=== PATIENT | female | born 1970 | race Caucasian/White ===

== ENCOUNTER 2024-05-19 12:11 | Inpatient (IN) | payer OTHER ==
[~2024-05-19] VITALS: Ht 152.4 cm; Wt 51.4 kg
[2024-05-19 13:05] LABS: BASOPHILS ABSOLUTE AUTO 0.03 K/mm3 (0.00-0.23); BASOPHILS PERCENT AUTO 0 % (0-2); EOSINOPHILS ABSOLUTE AUTO 0.03 K/mm3 (0.00-0.68); EOSINOPHILS PERCENT AUTO 0 % (0-6); Hematocrit 40.5 % (33.0-51.0); Hemoglobin 14.1 g/dL (11.5-16.0); IMMATURE GRAN ABSOLUTE AUTO 0.02 K/mm3 (0.00-0.10); IMMATURE GRAN PERCENT AUTO 0 % (0-1); LYMPHOCYTES ABSOLUTE AUTO 1.23 K/mm3 (0.84-5.20); LYMPHOCYTES PERCENT AUTO 15 % (21-46); MONOCYTES ABSOLUTE AUTO 0.48 K/mm3 (0.16-1.47); MONOCYTES PERCENT AUTO 6 % (4-13); Mean Corpuscular HGB 32.7 pg (26.0-34.0); Mean Corpuscular HGB Conc 34.8 g/dL (31.5-36.5); Mean Corpuscular Volume 94 fL (80-100); Mean Platelet Volume 10.1 fL (9.1-12.4); NEUTROPHILS ABSOLUTE AUTO 6.21 K/mm3 (1.96-9.15); NEUTROPHILS PERCENT AUTO 78 % (41-73); Platelet Count 270 K/mm3 (150-400); RDW Standard Deviation 42.5 fL (35.1-46.3); Red Blood Cell Count 4.31 M/mm3 (3.80-5.20)
[2024-05-19 13:08] LABS: CORONAVIRUS COVID-19 AG Negative (NEGATIVE); INFLUENZA A AG Negative (NEGATIVE); INFLUENZA B AG Negative (NEGATIVE)
[2024-05-19 13:19] LABS: International Normalized Ratio 1.02; Prothrombin Time Results 10.9 Sec (9.7-11.5)
[2024-05-19 13:24] LABS: Albumin, Blood 4.2 g/dL (3.4-5.0); Albumin/Globulin Ratio 1.2 (0.8-1.8); Bilirubin, Total 0.3 mg/dL (0.1-1.0); Calcium, Blood 9.4 mg/dL (8.5-10.1); Creatinine, Blood 0.61 mg/dL (0.40-1.00); Globulin, Blood 3.4 g/dL (2.2-4.0); Potassium, Blood 3.7 mmol/L (3.5-5.5); Total Protein, Blood 7.6 g/dL (6.4-8.2)
[2024-05-19] MEDS ORDERED: Aspirin 81 MG Chew PO ONE (16:50)
[2024-05-19] MEDS ORDERED: Ondansetron HCl 2 MG / ML 2ML Vial IV PRN (17:45)
[2024-05-19] MEDS ORDERED: NS 1,000 ML IV SCH (18:00)
[2024-05-19] MEDS ORDERED: Losartan Potassium 50 MG Tab PO ONE (18:05)
[2024-05-19 20:13] VITALS: BP 181/95
[2024-05-20 00:27] VITALS: BP 145/69
[2024-05-20 04:21] VITALS: BP 136/78
--- NOTE | 2024-05-20 04:56 | NUR ---
SHIFT SUMMARY: PT ARRIVED ~1930 AOX4 WITH R SIDED WEAKNESS AND DEFICITS. NO FACIAL DROOP AND ABLE TO SPEAK SOFTLY. IS ABLE TO ANSWER QUESTIONS APPROPRIATELY BUT R ARM AND LEG VERY WEAK. ABLE TO TRANSFER WITH WALKER AND ASSISTANCE FROM GURNEY TO BED AND TO BATHROOM. SLIGHT R FOOT DROP BUT PT COMPENSATING AND FAIRLY STEADY ON THEIR FEET. PT DENIES PAIN OR DISCOMFORT BUT EMOTIONAL ABOUT CURRENT CONDITION AND ANXIOUS ABOUT BEING ABLE TO RETURN TO BASELINE. PT FLAT AND WITHDRAWN BUT COOPERATIVE IN CARE. NO ACUTE EVENTS OVERNIGHT. PT RESTING IN BED, BED IN LOWEST POSITION, CALL LIGHT IN REACH. CONTINUING CARE.
[2024-05-20 06:13] LABS: Cholesterol 272 mg/dL (50-200); HDL Cholesterol 90 mg/dL (>39); LDL/HDL RATIO 1.8; Low Density Lipoprotein Chol 163 mg/dL (0-110); Triglycerides 94 mg/dL (30-160); Very Low Density Lipoprot Chol 18 mg/dL (6-32)
[2024-05-20] MEDS ORDERED: Atorvastatin 40 MG Tab PO SCH (09:00)
[2024-05-20] MEDS ORDERED: Enoxaparin 40 MG/0.4 ML SYR SC SCH (09:00)
[2024-05-20] MEDS ORDERED: Aspirin 81 MG Chew PO SCH (09:00)
[2024-05-20] MEDS ORDERED: Losartan Potassium 25 MG Tab PO SCH (09:00)
[2024-05-20 09:04] VITALS: BP 152/85
[2024-05-20] MEDS ORDERED: LORazepam 2 MG/ML 1ML Injection IV SCH (10:35)
[2024-05-20 15:16] VITALS: BP 149/74
--- NOTE | 2024-05-20 18:34 | NUR ---
SHIFT SUMMARY PT AOX4, COOPERATIVE, ABLE TO MAKE NEEDS KNOWN. PT USING BATHROOM APPROPRIATELY USING 1 PERSON ASSIST, FABRIC AWNING REPAIRER RECOMMENDS COMMODE FOR CONTINUED VOIDING. AWAITING SNF PLACEMENT AT THIS TIME. BED ALARM ACTIVE. BED IN LOWEST POSITION, CALL LIGHT WITHIN REACH.
[2024-05-20 22:16] VITALS: BP 132/69
--- NOTE | 2024-05-21 04:30 | NUR ---
SHIFT SUMMARY: PT AOX4 WITH R SIDED WEAKNESS. PT SLEPT THROUGH MOST OF THE NIGHT WITH NO COMPLAINTS. FAMILY AT BEDSIDE. STATES TO BE FEELING BETTER, ANXIOUS ABOUT GOING TO REHAB, BUT EAGER TO GET BETTER. NO ACUTE EVENTS OVERNIGHT. PT SLEEPING IN BED, BED IN LOWEST POSITION, CALL LIGHT IN REACH. CONTINUING CARE.
[2024-05-21 05:50] VITALS: BP 140/78
[2024-05-21 07:45] VITALS: BP 136/61
--- NOTE | 2024-05-21 11:07 | NUR ---
Pt laying in bed awake a/ox4, pleasant and cooperative with care, follows commands well, denies pain, states she's feeling better, swallowing po meds without diff, lungs are clear t/o, resp even and unlabored, no cough noted, on r/a, hrr, tele in place running sr per monitor, see strip, no ededma ntoed, ppp+2, cap refill <3 sec, vs stable, afebrile, piv to lfa site is clear and patent, btx4, abd flat soft nontender, voids without diff, skin c/w/d, move left side ext well, right side has gross motor movement, weak, nhan, call light in reach.
[2024-05-21 15:31] VITALS: BP 135/68
--- NOTE | 2024-05-21 18:19 | NUR ---
pt up in chair this evening, states she's doing good, states she worked with therapy and it was hard, offered some encouragment, no further changes this shift. call light in reach.
[2024-05-21 19:22] VITALS: BP 126/107
[2024-05-21 20:04] VITALS: BP 165/87
[2024-05-21 23:17] VITALS: BP 136/73
[2024-05-22 03:28] VITALS: BP 140/65
--- NOTE | 2024-05-22 05:28 | NUR ---
SHIFT SUMMARY PT A&O X4, CONTINUES TO HAVE RIGHT SIDED DEFICITS- RIGHT UPPER AND LOWER EXTREMETIES WITH SIGNIFICANT WEAKNESS. PT AMBULATES TO BATHROOM WITH ASSIST, WALKER, AND GAITBELT. PT NEEDS TO CONCENTRATE TO BE ABLE TO LIFT RIGHT FOOT. PT SLEPT INTERMITTENTLY THROUGH THE NIGHT. REMAINS QUIET/WITHDRAWN, BUT COOPERATIVE WITH CARE. BED IN LOWEST POSITION, CALL LIGHT WITHIN REACH, SIDERAILS UP X2.
[2024-05-22 08:13] VITALS: BP 132/70
[2024-05-22 15:32] VITALS: BP 133/73
--- NOTE | 2024-05-22 18:00 | NUR ---
SHIFT SUMMARY PT IS A/OX4. SBA WITH FWW. NO ACUTE CHANGES THROUGHOUT THIS SHIFT. PT CONTINUES TO EXPERIENCE SOME RIGHT SIDED WEAKNESS. ON TELE RUNNING NORMAL SINUS RYTHYM. MEDS WHOLE ONE AT A TIME. IN ROOM THROUGHOUT THIS SHIFT AND REMAIN VERY ACTIVE IN HER CARE. AWAITING INSURANCE AUTHORIZATION.
[2024-05-22 19:51] VITALS: BP 143/83
[2024-05-22 23:15] VITALS: BP 129/72
[2024-05-23 03:18] VITALS: BP 138/68
--- NOTE | 2024-05-23 06:38 | NUR ---
SHIFT SUMMARY PT CONTINUES TO HAVE RIGHT SIDED WEAKNESS, BUT IMPROVED FROM THE PREVIOUS NIGHT. PT OOB WITH GB/FWW AND ASSIST. SLEPT INTERMITTENTLY THROUGH THE NIGHT. AT BEDSIDE AND ACTIVELY INVOLVED IN CARE. BED IN LOWEST POSITION, CALL LIGHT WITHIN REACH, SIDERAILS UP X2.
[2024-05-23 07:34] VITALS: BP 142/74
[2024-05-23 11:57] VITALS: BP 147/84
[2024-05-23 16:21] VITALS: BP 144/78
--- NOTE | 2024-05-23 19:07 | NUR ---
SHIFT SUMMARY PT IS A/OX4, SBA WITH FWW TO BATHROOM/CHAIR. IN ROOM THROUGHOUT THIS SHIFT AND VERY ACTIVE IN HER CARE. NO ACUTE CHANGES THROUGHOUT THIS SHIFT. AWAITING INSURANCE AUTHROIZATION FOR EXPECTED IRU PLACEMENT.
[2024-05-23 20:23] VITALS: BP 161/86
[2024-05-24 00:19] VITALS: BP 156/63
--- NOTE | 2024-05-24 04:49 | NUR ---
SHIFT SUMMARY PT A&O X4, RIGHT SIDED WEAKNESS CONTINUES TO IMPROVE. RIGHT CIRCULAR SAW OPERATOR STILL VERY WEAK. PT UP TO BATHROOM WITH 1 ASSIST AND FWW. PT DENIES COMPLAINTS THROUGH THE NIGHT. AT BEDSIDE AND ACTIVELY PARTICIPATING IN CARE. BED IN LOWEST POSITION, CALL LIGHT WITHIN REACH, SIDERAILS UP X2.
[2024-05-24 05:50] VITALS: BP 136/73
[2024-05-24 08:41] VITALS: BP 133/83
[2024-05-24 12:21] VITALS: BP 153/75
[2024-05-24 16:12] VITALS: BP 147/82
--- NOTE | 2024-05-24 18:39 | NUR ---
SHIFT SUMMARY PT IS A/OX4. SBA W/FWW. NO ACUTE CHANGES THROUGHOUT THIS SHIFT. R SIDED WEAKNESS CONTINUES TO IMPROVE WHEN COMPARED TO YESTERDAY. AWAITING INSURANCE FOR POSSIBLE DISCHARGE TO IRU. PT CALLS APPROPRIATELY.
[2024-05-24 19:54] VITALS: BP 152/90
[2024-05-25 00:50] VITALS: BP 123/73
[2024-05-25 04:42] VITALS: BP 142/65
--- NOTE | 2024-05-25 05:10 | NUR ---
SHIFT SUMMARY NO ACUTE CHANGES THIS SHIFT. RIGHT SIDED WEAKNESS REMAINS. PT UP WITH FWW AND SBA. SLEPT LONG INTERVALS THROUGH THE NIGHT. AT BEDSIDE. PT IS ANTICIPATING TRANSFER TO IRU TODAY PENDING INSURANCE AUTH. BED IN LOWEST POSITON, CALL LIGHT WITHIN REACH, SIDERAILS UP X2.
--- NOTE | 2024-05-25 08:00 | NUR ---
PT PLEASANT COOP, A/O X4, LIGHT RT FACIAL DROOP. DENIES PAIN AT THIS TIME. RT SIDE WEAK. CAN LIFT RT ARM, RT LEG, GROSS WEAK SENIOR TECHNICAL RECRUITER, WEAK DORSAL PEDAL MOVEMENT IN RT FOOT. PT ABLE TO AMBULATE ABOUT ROOM WITH FWW. PICKS UP RT FOOT BUT SOME DROP NOTED. PT STATES VERY MOTIVATED FOR REHAB AND RECOVERY. HUSB IN ROOM. AGREES. H/R REG, PER TELE, 1' AV BLOCK. 47, THIS AM. PRESENTLY NSR AT 60'S. LUNGS CLEAR, RESP EASY, UNLABORED. R/A. BT X4 LAST BM YEST PER PT. VOIDS SBA TO BATHROOM. FWW. NO OTHER CONCERNS NOTED. BED IN LOW POSITION,C ALL LITE IN REACH, CALLS APPROP
[2024-05-25 08:02] VITALS: BP 136/82
[2024-05-25 11:45] VITALS: BP 151/101
[2024-05-25] MEDS ORDERED: ASPI81CH PO (12:02)
[2024-05-25] MEDS ORDERED: ATOR80 PO (12:02)
[2024-05-25] MEDS ORDERED: LOSA25 PO (12:03)
--- NOTE | 2024-05-25 13:40 | NUR ---
PT DISCHARGED TO REHAB, [facility] [place]/ PT SPOUSE TO DRIVE PT TO [facility]. IV PULLED BY DARYL, TELE REMOVED BY DARYL. CALLED REPORT TO ALICE [phone]. PT WHEELED TO DOOR BY RI, [id number]
[2024-05-27 09:45] LABS: ANTI-XA QUALITATIVE INTERP Not Performed (Not Present); ANTICOAG MEDICATION NEUTRALIZ Not Performed (Not Performed); DRVVT 1:1 MIX RATIO Not Performed (<=1.20); DRVVT CONFIRMATION RATIO Not Performed (<=1.20); DRVVT SCREEN RATIO 0.78 (<=1.20); HEXAGONAL PHOSPHOLIPID CONFIRM Not Performed s (<=7.9); NEUTRALIZED DRVVT SCREEN RATIO Not Performed (<=1.20); NEUTRALIZED PTT-LA RATIO Not Performed (<=1.20); PROTHROMBIN TIME (PT) 12.6 s (12.0-15.5); PTT-LA RATIO 0.86 (<=1.20); THROMBIN TIME (TT) Not Performed s (<=19.5)
[2024-05-27 12:03] LABS: APC RESISTANCE 3.22 (>=2.00); FACTOR V LEIDEN BY PCR Not Done; FACV REF SPECIMEN Not Done
[2024-05-27 13:02] LABS: PROTEIN C FUNCTIONAL 180 % (83-168)
[2024-05-27 13:27] LABS: PROTEIN S AG FREE 118 % (55-123)
[2024-05-27 19:34] LABS: ANTITHROMBIN, ENZYM (ACTIVITY) 126 % (76-128)
== END 2024-05-25 13:43 | DRG 65 ==
LOC: ER 12:11 → MEDS 12:12 → ERHOLD 12:12 → MEDS 19:55
PROVIDERS: Nurse Practitioner Acute Care; Student in an Organized Health Care Education/Training Program; ADMIT Student in an Organized Health Care Education/Training Program
DX: I63.9 Cerebral infarction, unspecified (principal); G81.91 Hemiplegia, unspecified affecting right dominant side; R29.704 NIHSS score 4; I10 Essential (primary) hypertension; R29.810 Facial weakness; R20.0 Anesthesia of skin; R73.9 Hyperglycemia, unspecified; E78.5 Hyperlipidemia, unspecified; Z79.899 Other long term (current) drug therapy; Z98.890 Other specified postprocedural states
CPT/HCPCS: 36415; 70450; 70496; 70498; 70551; 80053; 80061; 83036; 85025; 85610; 85730; 87428-QW; 92526; 92610; 93005; 93010; 93306; 96372; 96374; 97112; 97116; 97162; 97165; 97530; 97535; 99285-25; A9270; G0378; J1650; J2060; Q9967